=== PATIENT | male | born 1950 | race Two or more races ===

== ENCOUNTER → 2023-11-22 | Day surgery (SDC) | payer OTHER ==
[~2023-11-22] VITALS: Ht 172.7 cm; Wt 70.3 kg
[~2023-11-22] MED LIST: ATOR10TA52 PO; GLYCOPYRROLATE 0.2 MG/ML 1ML VIAL ONE; HYDROmorphone HCL 2 MG/ML VL/or syr IV PRN; KETAMINE 50mg/ML 1ml syringe ONE; KETOROLAC TROMETH 30 MG/ML 1ML VIAL IV ONE; LIDOCAINE 2% (LOCAL ANESTH.) PF 5ml SDV ONE; LOSA-533 PO; MIDAZOLAM HCL 2MG/2ML 2ml VIAL (1mg/ml) ONE; NEOSTIGMINE 1 MG/ML INJ (10mg/10ML VIAL) ONE; ONDANSETRON HCL 4 MG/2 ML VIAL ONE; PROPOFOL 10 MG/ML 20 ML IV ONE; ceFAZolin 1GM VL ONE; fentaNYL CITRATE 5 ML ONE
[2023-11-22] MEDS: LIDOCAINE 1% HCL (LOCAL ANESTH.) INJ 20ML MDV ONE (08:23)
[2023-11-22] MEDS: BUPIVACAINE HCL 0.25% P/F 10 ML VIAL ONE (08:23)
[2023-11-22] MEDS: levoFLOXacin 500MG 100 ML IV ONE (09:49)
[2023-11-22 11:18] VITALS: TEMP 97.4
[2023-11-22] MEDS: ONDANSETRON HCL 4 MG/2 ML VIAL IV ONE (12:01)
[2023-11-22 13:05] VITALS: BP 140/73; PULSE 57; RESP 12; O2SAT 100
== END | disposition home or self-care (01) ==
LOC: SUR 07:04
PROVIDERS: ATTEND Surgery
DX: K40.90 Unilateral inguinal hernia, without obstruction or gangrene, not specified as recurrent (principal); I10 Essential (primary) hypertension; M10.9 Gout, unspecified; M19.90 Unspecified osteoarthritis, unspecified site; K21.9 Gastro-esophageal reflux disease without esophagitis; Z88.0 Allergy status to penicillin; Z98.890 Other specified postprocedural states; Z87.891 Personal history of nicotine dependence; Z79.899 Other long term (current) drug therapy
CPT/HCPCS: 49650; C1713; C1781; J1956; J2001; J2250; J2405; J2704; J3010; J3490; J7030; J0690